=== PATIENT | male | born 1980 | race Caucasian/White ===

== ENCOUNTER 2023-04-09 16:39 | Emergency (ER) | payer BC, SELFPAY ==
--- NOTE | ~2023-04-09 | XR_ITS ---
EXAMINATION: RIGHT ANKLE, RIGHT FOOT CLINICAL INFORMATION: Tenderness to palpation over the first and second metatarsal COMPARISON: None available. TECHNIQUE: 3 views ankle, 3 views foot FINDINGS: No bone, joint or soft tissue abnormality is seen XR/XR ankle RT min 3V IMPRESSION: Negative exam.
--- NOTE | ~2023-04-09 | US_ITS ---
EXAMINATION: US VENOUS ULTRASOUND WITH DOPPLER LOWER EXTREMITY, RIGHT CLINICAL INFORMATION: Right foot swelling and pain COMPARISON: None available. TECHNIQUE: Ultrasound of the deep veins is performed from the hip to the calf with compression sonography and color and pulse Doppler assessment. Spectral analysis with color-flow imaging is performed. FINDINGS: There is normal venous compression and respiratory variation and augmented flow. The visualized common femoral vein, superficial femoral vein, profunda femoral vein, popliteal vein, and the trifurcation region shows no evidence of deep venous thrombosis. There is no significant popliteal fossa cyst. mildly prominent right thigh lymph nodes are seen the largest measuring 2.7 x 0.7 x 1.4 cm. If the patient's symptoms persist, followup ultrasound in 5 days 7 days might be of value to exclude proximal propagation from a non-visualized calf vein. US/US venous duplex LE RT IMPRESSION: No DVT demonstrated in the right lower extremity.
--- NOTE | ~2023-04-09 | XR_ITS ---
EXAMINATION: RIGHT ANKLE, RIGHT FOOT CLINICAL INFORMATION: Tenderness to palpation over the first and second metatarsal COMPARISON: None available. TECHNIQUE: 3 views ankle, 3 views foot FINDINGS: No bone, joint or soft tissue abnormality is seen XR/XR foot RT min 3V IMPRESSION: Negative exam.
--- NOTE | 2023-04-09 17:25 | ED.GENADULT ---
HPI - General Adult General Chief complaint: Extremity Problem Stated complaint: right foot swollen and pain Time Seen by Provider: 04/09/23 19:42 Related Data Previous Rx's Medication Instructions Recorded colchicine (gout) 0.6 mg tablet 0.6 mg PO ONCE #6 tabs 04/09/23 (Colcrys) oxycodone 5 mg tablet 5 mg PO Q6H PRN pain #14 tabs 04/09/23 Allergies Allergy/AdvReac Type Severity Reaction Status Date / Time efavirenz Allergy Unknown Verified 04/09/23 17:26 COUNT INCLUDES THE [facility] Social History Advance Directives: No Advance Directives Information Provided: No Physical Exam ED Vital Signs: Vital Signs - 24 hr 04/09/23 17:26 Temperature 98.1 F Pulse Rate 100 Respiratory Rate 16 Blood Pressure 136/85 Pulse Oximetry 96 BMI result Body Mass Index 33.7 Course Course Course Narrative: RME:?42 yo male presents to the ED today with atraumatic right foot swelling and pain upon waking this morning, worsening throughout the day. Reports flying home from [place] this morning where his right lower extremity pain began to worsen. He also reports shortness of breath and chest pain while on the flight. [place] like his heart was racing. Denies numbness/tingling/weakness of LEs. Denies chest pain or shortness of breath at present. Denies history of gout. No trauma or injury to the foot. PE: Tachycardic. Lungs CTA bilaterally. diffuse swelling to right foot. no calf tenderness. 2+ dp/pt pulses. Plan: XRs, US, dimer, labs Full HPI, ROS and PE to be performed by the primary ED provider. Medical Decision Making Lab Data 04/09/23 17:45 04/09/23 17:45 Labs: Lab Results 04/09/23 Range/Units 17:45 WBC 11.3 H (4.8-10.8) X10*3/uL RBC 5.06 (4.60-5.80) X10*6/uL Hgb 15.2 (14.0-18.0) g/dl Hct 44.0 (42.0-52.0) % MCV 87.0 (80.0-98.0) fL MCH 30.0 (27.0-33.0) pg MCHC 34.5 (31.0-36.0) g/dl RDW 13.2 (11.0-16.0) % Plt Count 338 (160-400) X10*3/uL MPV 9.5 (9.4-12.4) fL Immature Gran % (Auto) 0.3 (0.0-0.4) % Neut % (Auto) 68.1 (45-73) % Lymph % (Auto) 22.9 (20-40) % [place] % (Auto) 7.9 (2-11) % Eos % (Auto) 0.4 (0-4) % Baso % (Auto) 0.4 (0-2) % Lymph # (Auto) 2.6 (1.2-4.9) X10*3/uL [place] # (Auto) 0.9 (0.1-1.2) X10*3/uL Eos # (Auto) 0.0 (0.0-0.4) X10*3/uL Baso # (Auto) 0.0 (0.0-0.2) X10*3/uL Abs Immat Gran (auto) 0.03 (0.00-0.03) X10*3/uL Absolute Neuts (auto) 7.7 (2.0-8.3) x10*3/uL Absolute Nucleated RBC 0.000 (0.0-0.012) X10*3/uL Nucleated RBC % (auto) 0.0 (0.0-0.2) /100WBC ESR 6 (0-15) MM/HR PT 12.0 (11.1-13.3) SEC INR 1.0 (0.9-1.1) D-Dimer High Sensitivty < 150 NG/ML Sodium 140 (135-145) mmol/L Potassium 3.1 L (3.3-5.1) mmol/L Chloride 103 (96-108) mmol/L Carbon Dioxide 25 (22-29) mmol/L Anion Gap 15 (12-20) BUN 18 H (9-16) mg/dL Creatinine 1.84 H (0.5-1.4) mg/dL Estim Creat Clear Calc 75.2 Estimated GFR 41 Random Glucose 95 (60-115) mg/dL Uric Acid 9.0 H (3.4-7.0) mg/dL Calcium 9.5 (8.4-10.2) mg/dL Magnesium 2.2 (1.6-2.6) mg/dL C-Reactive Protein 0.71 H (< or = 0.50) mg/dL Radiology Impression Discussion of test interpretation with radiology: I have reviewed the radiologist's reading. Radiologist Impression: US venous duplex LE RT IMPRESSION: No DVT demonstrated in the right lower extremity. Dictated By: David San MD XR ankle RT min 3V IMPRESSION: Negative exam. Dictated By: David San MD R foot RT min 3V IMPRESSION: Negative exam. Dictated By: David San MD Discharge Plan Discharge Clinical Impression: [place], Acute dehydration Gout attack Qualifiers: Gout site: toe Laterality: right Patient Disposition: Home, Self-Care Instructions: Gout (ED) Additional Instructions: Your x-rays of your foot and ankle were normal. Your duplex ultrasound of your leg revealed no blood clot which is reassuring. Your D-dimer, which is a marker of blood clots, was normal. Your blood work was unremarkable except for an elevated uric acid at 9.0 (normal is 3.4-7.0). An elevated uric acid goes along with gout. You also have elevated kidney number number with a BUN of 18 (normal 01/16/2016) and creatinine at 1.84 (normal is 0.5-1.4) and this is most likely caused by dehydration.. Take Colcrys 0.6 mg, 2 pills and then 1 pill 1 hour later. You may repeat this 3 3 days later if needed. Take ibuprofen 200 mg pills, 3 pills every 6 hours as needed for pain. Take Tylenol (acetaminophen) 500 mg pills, 2 pills every 4-6 hours as needed for pain. For pain not relieved by ibuprofen or Tylenol take oxycodone 5 mg pills, 1 pill every 4 hours as needed for pain. Do not drive or work while taking this medication since they can cause sleepiness. Oxycodone is a narcotic medication that can be addicting. If you are concerned about addiction you can ask the pharmacist for less pills or do not get this prescription filled. Follow-up with your doctor in 2 days. Please return to the emergency department if your symptoms get worse or if you develop any symptoms that are concerning to you. When you are feeling better and at least 2 weeks from now you should have a repeat uric acid and repeat BUN and creatinine by your primary care doctor. Prescriptions: New colchicine (gout) [Colcrys] 0.6 mg tablet 0.6 mg PO ONCE Qty: 6 0RF Rx Instructions: 1.2 mg orally, then 1 hour later take 0.6 mg orally, repeat in 3 days oxycodone 5 mg tablet 5 mg PO Q6H PRN (Reason: pain) Qty: 14 0RF Rx Instructions: Patient may request partial refill; Partial Fill upon patient request.
[2023-04-09 17:26] VITALS: BP 136/85; PULSE 100; RESP 16; TEMP 36.7; O2SAT 96; BMI 33.7
[2023-04-09 17:51] LABS: MANUAL DIFF FLAG NO
[2023-04-09 18:05] LABS: Basophils Percent Auto 0.4 % (0-2); Eosinophils Percent Auto 0.4 % (0-4); Hemoglobin 15.2 g/dl (14.0-18.0); Imm Gran Abs Auto 0.03 X10*3/uL (0.00-0.03); Imm Gran Pct Auto 0.3 % (0.0-0.4); Lymphocytes Absolute Auto 2.6 X10*3/uL (1.2-4.9); Lymphocytes Percent Auto 22.9 % (20-40); Mean Corpuscular HGB Conc 34.5 g/dl (31.0-36.0); Mean Platelet Volume 9.5 fL (9.4-12.4); Monocytes Absolute Auto 0.9 X10*3/uL (0.1-1.2); Monocytes Percent Auto 7.9 % (2-11); Neutrophils Absolute Auto 7.7 x10*3/uL (2.0-8.3); Neutrophils Percent Auto 68.1 % (45-73); Platelet Count 338 X10*3/uL (160-400); Red Blood Count 5.06 X10*6/uL (4.60-5.80); Red Cell Distribution Width 13.2 % (11.0-16.0); White Blood Count 11.3 X10*3/uL (4.8-10.8)
[2023-04-09 18:07] LABS: Anion Gap 15 (12-20); Blood Urea Nitrogen 18 mg/dL (9-16); Calcium 9.5 mg/dL (8.4-10.2); Carbon Dioxide 25 mmol/L (22-29); Chloride 103 mmol/L (96-108); Creatinine Clr Calc Pharmacy 75.2; Estimated Glomerular Filt Rate 41; Glucose Random 95 mg/dL (60-115); Magnesium 2.2 mg/dL (1.6-2.6); Potassium 3.1 mmol/L (3.3-5.1); Sodium 140 mmol/L (135-145)
--- NOTE | 2023-04-09 18:13 | PC.NURSE ---
patient presents with right foot pain, states his pain started this morning prior to his flight from [place] back to [facility]. patient has bilat pedal pulses. right foot is red, swollen and warm to touch. patient states today on his flight he started to become diaphoretic and sob.
[2023-04-09 18:15] LABS: D Dimer High Sensitivity < 150 NG/ML
[2023-04-09 18:30] LABS: C Reactive Protein 0.71 mg/dL (< or = 0.50)
[2023-04-09 19:02] LABS: Erythrocyte Sedimentation Rate 6 MM/HR (0-15)
[2023-04-09 20:42] VITALS: BP 147/92; PULSE 92; RESP 8; TEMP 36.6; O2SAT 96
== END 2023-04-09 20:43 | disposition home or self-care (01) ==
PROVIDERS: Physician Assistant Medical; Emergency Provider Emergency Medicine Emergency Medical Services
DX: M10.9 Gout, unspecified (principal); E86.0 Dehydration; M79.604 Pain in right leg
CPT/HCPCS: 36415; 73610; 73630; 80048; 83735; 84550; 85025; 85379; 85610; 85652; 86140; 93971; 99284

== ENCOUNTER 2024-01-27 16:42 | Emergency (ER) | payer BC, SELFPAY ==
[2024-01-27 17:05] VITALS: BP 164/98; PULSE 103; RESP 20; TEMP 37.2; O2SAT 98; BMI 34.2
--- NOTE | 2024-01-27 17:08 | ED.GENADULT ---
HPI - General Adult General Chief complaint: General Medical Stated complaint: not feeling well Time Seen by Provider: 01/27/24 22:26 Source: patient and RN notes reviewed Limitations: no limitations History of Present Illness HPI narrative: 43-year-old male with a history of HIV with undetectable levels, on antiviral medication, presents for evaluation of a rash. Patient states that he began to develop a itchy rash September 24 2 days ago. It 1st started on his left hand, 1st digit. Then noticed similar lesions scattered on his trunk and lower extremities. Patient states they are slightly reddened, itchy and somewhat tender to palpation. There is no streaking or discharge. He denies any history of similar symptoms. No recent contacts, detergents, foods. He does report travel to [place] several weeks ago. He reports subjective fevers yesterday. He denies any known insect bites. Patient is otherwise feeling well. He has been eating and drinking normally. Related Data Previous Rx's ?Medication ?Instructions ?Recorded colchicine 0.6 mg tablet (Colcrys) 0.6 mg PO ONCE #6 tabs 04/09/23 oxycodone 5 mg tablet 5 mg PO Q6H PRN pain #14 tabs 04/09/23 doxycycline monohydrate 100 mg 100 mg PO BID 10 days #20 caps 01/27/24 capsule hydroxyzine HCl 25 mg tablet 25 mg PO TID PRN itching #20 tabs 01/27/24 Allergies Allergy/AdvReac Type Severity Reaction Status Date / Time efavirenz Allergy Unknown Verified 01/27/24 17:07 Review of Systems Constitutional: Constitutional: Reports chills and Reports fever(s) ENT: Denies sore throat Comments: No oral lesion Cardiovascular: Cardiovascular: Denies chest pain Respiratory: Respiratory: Denies no additional respiratory complaints Genitourinary: Genitourinary: Denies difficulty urinating Comments: No genital or perianal lesions [facility] Past Medical History Attestation statement: The following information was validated with the patient. [facility] Narrative: HIV Social History Social History Advance Directives: No Advance Directives Information Provided: No Do you have a plan to hurt others: No Plan Physical Exam ED Vital Signs: Vital Signs - 24 hr 01/27/24 17:05 01/27/24 19:26 01/27/24 22:34 Temperature 98.9 F 97.5 F 96.9 F Pulse Rate 103 H 79 81 Respiratory Rate 20 16 16 Blood Pressure 164/98 H 118/72 129/83 Pulse Oximetry 98 96 96 Oxygen Delivery Method Room Air Room Air Room Air BMI result Body Mass Index 34.2 Const General: alert, awake and Physically active HENMT Other: Oropharynx is moist. No tongue elevation or edema. No lesions in the oral mucosa. Resp Other: Lung sounds clear throughout, no wheezes rales or rhonchi Cardio Rate: regular rate Rhythm: regular rhythm Skin Other: Multiple, scattered, flesh colored, mildly erythematous papules noted on the left 1st digit, several scattered on the anterior and posterior chest, posterior lower extremities and arms. No lesions on the soles of the feet or palms of the hands. There is no streaking. Negative Nikolsky sign. Course Course Course Narrative: This is a Rapid Medical Examination (RME) performed by Maritza Mnadujano PA-C in triage. Full HPI, ROS, assessment and treatment plan per primary provider in the Main ED. 43 yo male here for eval of low grade fevers, weakness, and rash to torso/ UEs x3 days. admits rash is itchy. had chicken pox as a child. never received vaccination. no known sick contacts. no joint pain. no known tick or insect bites. + small pustules on erythematous base noted to anterior torso. unable to fully examine skin in triage as patient is fully dressed. Plan: labs, tick/lyme testing Medications Administered Discontinued Medications Generic Name Dose Route Start Last Admin Trade Name Freq PRN Reason Stop Dose Admin Doxycycline Monohydrate 100 mg 01/27/24 23:03 01/27/24 23:21 Doxycycline Monohydrate 100 Mg Capsule PO 01/27/24 23:04 100 mg ONCE ONE Administration Medical Decision Making Medical Decision Making MDM Narrative: 43-year-old male with a history of HIV, proximally 2 day rash. Patient is hemodynamically stable and afebrile. Concern for possible staph infection or folliculitis. Also possible contact dermatitis. Consideration for staph infection as well. Definitive etiology is not glaring at this time. Low suspicion for STI such as syphilis or monkey pox. Symptomatic treatment with hydroxyzine for itching and patient will be placed on doxycycline in case infectious process. Discussed with and seen by Dr. Zambrano is with current plan. Differential Diagnosis Differential Diagnoses: The differential diagnosis associated with the presentation includes Contact dermatitis Folliculitis Insect bites Dermatitis Abscess Monkey pox, low suspicion Lab Data MDM Lab Attestation statement: I reviewed the patient's lab results. 01/27/24 17:28 01/27/24 17:28 Labs: Lab Results 01/27/24 Range/Units 17:28 WBC 5.7 (4.8-10.8) X10*3/uL RBC 4.67 (4.60-5.80) X10*6/uL Hgb 13.9 L (14.0-18.0) g/dl Hct 39.8 L (42.0-52.0) % MCV 85.2 (80.0-98.0) fL MCH 29.8 (27.0-33.0) pg MCHC 34.9 (31.0-36.0) g/dl RDW 13.6 (11.0-16.0) % Plt Count 244 D (160-400) X10*3/uL MPV 9.3 L (9.4-12.4) fL Immature Gran % (Auto) 0.7 H (0.0-0.4) % Neut % (Auto) 45.3 (45-73) % Lymph % (Auto) 40.9 H (20-40) % [place] % (Auto) 9.1 (2-11) % Eos % (Auto) 3.3 (0-4) % Baso % (Auto) 0.7 (0-2) % Lymph # (Auto) 2.4 (1.2-4.9) X10*3/uL [place] # (Auto) 0.5 (0.1-1.2) X10*3/uL Eos # (Auto) 0.2 (0.0-0.4) X10*3/uL Baso # (Auto) 0.0 (0.0-0.2) X10*3/uL Abs Immat Gran (auto) 0.04 H (0.00-0.03) X10*3/uL Absolute Neuts (auto) 2.6 (2.0-8.3) x10*3/uL Absolute Nucleated RBC 0.000 (0.0-0.012) X10*3/uL Nucleated RBC % (auto) 0.0 (0.0-0.2) /100WBC Smear Tech's Comments VERIFIED Sodium 142 (135-145) mmol/L Potassium 3.3 (3.3-5.1) mmol/L Chloride 109 H (96-108) mmol/L Carbon Dioxide 24 (22-29) mmol/L Anion Gap 12 (12-20) BUN 20 H (9-16) mg/dL Creatinine 1.41 H (0.5-1.4) mg/dL Estim Creat Clear Calc 97.9 Estimated GFR 55 Random Glucose 112 (60-115) mg/dL Calcium 9.5 (8.4-10.2) mg/dL Total Bilirubin 0.6 (0.0-1.0) mg/dL AST 21 (5-37) U/L ALT 25 (0-40) U/L Alkaline Phosphatase 79 (39-117) U/L Total Protein 8.0 (6.5-8.0) g/dL Albumin 4.3 (3.5-5.0) g/dL Prescription Management I considered prescription management with: Antibiotic Chronic Conditions Patient?s care impacted by: Other (HIV) Discharge Plan Discharge Clinical Impression: Rash and nonspecific skin eruption Patient Disposition: Home, Self-Care Instructions: Acute Rash (ED) Additional Instructions: Doxycycline as directed. Finish all antibiotics. Hydroxyzine as directed for itching. This may make you drowsy. Watch for any worsening of symptoms Follow-up with your primary care provider. Call this week to schedule a follow-up appointment. Return to the emergency department if you have any worsening of symptoms, or any concerns. Get well soon! Prescriptions: New doxycycline monohydrate 100 mg capsule 100 mg PO BID 10 Days Qty: 20 0RF hydroxyzine HCl 25 mg tablet 25 mg PO TID PRN (Reason: itching) Qty: 20 0RF No Action colchicine [Colcrys] 0.6 mg tablet 0.6 mg PO ONCE Qty: 6 0RF Rx Instructions: 1.2 mg orally, then 1 hour later take 0.6 mg orally, repeat in 3 days oxycodone 5 mg tablet 5 mg PO Q6H PRN (Reason: pain) Qty: 14 0RF Rx Instructions: Patient may request partial refill; Partial Fill upon patient request. Stand Alone Forms: Work/School Release Print Language: Maltese
[2024-01-27 17:39] LABS: Basophils Percent Auto 0.7 % (0-2); Eosinophils Absolute Auto 0.2 X10*3/uL (0.0-0.4); Eosinophils Percent Auto 3.3 % (0-4); Hematocrit 39.8 % (42.0-52.0); Hemoglobin 13.9 g/dl (14.0-18.0); Imm Gran Abs Auto 0.04 X10*3/uL (0.00-0.03); Imm Gran Pct Auto 0.7 % (0.0-0.4); Lymphocytes Absolute Auto 2.4 X10*3/uL (1.2-4.9); Lymphocytes Percent Auto 40.9 % (20-40); MANUAL DIFF FLAG SCAN; Mean Corpuscular HGB Conc 34.9 g/dl (31.0-36.0); Mean Corpuscular Hemoglobin 29.8 pg (27.0-33.0); Mean Corpuscular Volume 85.2 fL (80.0-98.0); Mean Platelet Volume 9.3 fL (9.4-12.4); Monocytes Absolute Auto 0.5 X10*3/uL (0.1-1.2); Monocytes Percent Auto 9.1 % (2-11); Neutrophils Absolute Auto 2.6 x10*3/uL (2.0-8.3); Neutrophils Percent Auto 45.3 % (45-73); Platelet Count 244 X10*3/uL (160-400); Red Blood Count 4.67 X10*6/uL (4.60-5.80); Red Cell Distribution Width 13.6 % (11.0-16.0); SCAN SMEAR FLAG 1; White Blood Count 5.7 X10*3/uL (4.8-10.8)
[2024-01-27 17:50] LABS: Alanine Aminotransferase 25 U/L (0-40); Albumin Level 4.3 g/dL (3.5-5.0); Alkaline Phosphatase 79 U/L (39-117); Anion Gap 12 (12-20); Aspartate Amino Transferase 21 U/L (5-37); Bilirubin Total 0.6 mg/dL (0.0-1.0); Blood Urea Nitrogen 20 mg/dL (9-16); Calcium 9.5 mg/dL (8.4-10.2); Carbon Dioxide 24 mmol/L (22-29); Chloride 109 mmol/L (96-108); Creatinine Clr Calc Pharmacy 97.9; Estimated Glomerular Filt Rate 55; Glucose Random 112 mg/dL (60-115); Potassium 3.3 mmol/L (3.3-5.1); Sodium 142 mmol/L (135-145)
[2024-01-27 18:36] LABS: SLIDE REVIEW VERIFIED
[2024-01-27 19:26] VITALS: BP 118/72; PULSE 79; RESP 16; TEMP 36.4; O2SAT 96
[2024-01-27 22:34] VITALS: BP 129/83; PULSE 81; RESP 16; TEMP 36.1; O2SAT 96
[2024-01-27] MEDS: Doxycycline Monohydrate 100 MG CAPSULE PO (23:21)
[2024-01-28] VITALS: BP 126/85; PULSE 75; RESP 16; TEMP 36.4; O2SAT 96
[2024-01-28 00:02] VITALS: BP 126/85; PULSE 75; RESP 16; TEMP 36.4; O2SAT 96
[2024-01-30 23:13] LABS: A. Phagocytphilium DNA,RT-PCR NOT DETECTED (NOT DETECTED); Babesia Microti DNA, RT-PCR NOT DETECTED (NOT DETECTED); Borrelia Miyamotoi,DNA RT-PCR NOT DETECTED (NOT DETECTED); E.Chaffeensis DNA RT-PCR NOT DETECTED (NOT DETECTED); Lyme(Borrelia ssp)DNA RT-PCR NOT DETECTED (NOT DETECTED)
[2024-01-31 07:39] LABS: Lyme Abs Screen <0.90 index
== END 2024-01-28 00:03 | disposition home or self-care (01) ==
PROVIDERS: Physician Assistant Medical; Emergency Provider Emergency Medicine; PCP Family Medicine
DX: R21 Rash and other nonspecific skin eruption (principal); B20 Human immunodeficiency virus [HIV] disease; Z79.899 Other long term (current) drug therapy
CPT/HCPCS: 36415; 80053; 85025; 86617; 86618; 87468; 87469; 87478; 87484; 87798; 99283; 99284